=== PATIENT | male | born 1965 | race Caucasian/White ===

== ENCOUNTER 2021-01-19 15:44 | Emergency (ER) | payer SELFPAY ==
[~2021-01-19] VITALS: Ht 175.3 cm; Wt 89.4 kg
[2021-01-19 15:51] VITALS: BP 138/82
--- NOTE | 2021-01-19 16:08 | NUR ---
SEEN AND EXMAINED BY .
[2021-01-19] MEDS ORDERED: LIDOCAINE VISCOUS 2% UD 15 ML UDC ONE (16:12)
[2021-01-19] MEDS ORDERED: MAG HYDROX/AL HYDROX/SIMETH 30 ML UDC ONE (16:12)
[2021-01-19] MEDS: LIDOCAINE VISCOUS 2% UD 15 ML UDC MM ONE (16:15)
[2021-01-19] MEDS: MAG HYDROX/AL HYDROX/SIMETH 30 ML UDC PO ONE (16:15)
--- NOTE | 2021-01-19 16:23 | NUR ---
Patient discharged to home in stable condition. Written and verbal after care instructions given. Patient verbalizes understanding of instruction.
== END 2021-01-19 16:24 | disposition home or self-care (01) ==
LOC: ER 15:53
DX: R13.10 Dysphagia, unspecified (principal); F32.9 Major depressive disorder, single episode, unspecified